=== PATIENT | male | born 1965 | race Caucasian/White ===

== ENCOUNTER 2020-04-16 10:28 | Emergency (ER) | payer BC, SELFPAY ==
[2020-04-16 10:29] VITALS: BP 140/92; PULSE 95; RESP 17; TEMP 36.2; O2SAT 98; BMI 22.9
--- NOTE | 2020-04-16 11:29 | ED.DCSUM_ITS ---
History of Present Illness Chief Complaint: Laceration Narrative: Patient presenting for evaluation secondary to a finger laceration. Patient reports that he was utilizing a chain saw, and suffered a laceration to his right index finger. He is right-hand dominant. He reports that his tetanus status is right around the last 5 years. He denies any history of diabetes or immunosuppression. Bleeding was controlled with pressure. Pain is mild to moderate worse with palpation and movement. No numbness or weakness associated with this. Past Medical History - Allergies and Home Meds Allergies/Adverse Reactions: Allergies No Known Allergies Allergy (Verified 04/16/20 10:29) Primary Care Physician: Blade Bruce III, MD [Primary Care Provider] - Surgical History: total knee arthroplasty, - - Laparotomy for diverticulitis Smoking Status: Never smoker - Family History Maternal Family History: Reports: COPD Sibling Family History: Reports: - - Back problems Paternal Family History: Reports: Cancer - Lung Review of Systems General: Denies: Fever Respiratory: Denies: Dyspnea, Cough Gastrointestinal: Denies: Nausea Musculoskeletal: Reports: Extremity Pain Skin: Reports: Wounds Neurological: Denies: Weakness, Numbness Hematologic: Denies: Easy bruising, Easy bleeding Physical Exam Vital Signs/Narrative: Vital Signs Temp Pulse Resp BP Pulse Ox 04/16/20 10:29 97.1 F L 95 17 140/92 H 98 Inital Vital Signs reviewed: Yes Right Finger: - - Examination of the patient's right hand shows a laceration that is just distal to the proximal interphalangeal joint of the right index finger on the dorsal surface. Normal flexion and extension of the finger. Normal capillary refill. Normal two-point sensation distally. Laceration measures may be 1 cm General: Well nourished, Well developed Head: Normocephalic Eyes: EOMI ENT: No Trauma Neck: Full ROM Cardiovascular: Regular rate, Regular rhythm, - - 2+ radial pulses bilaterally symmetric Respiratory: No distress Skin: Normal color, No rash Neurological: Alert, Oriented x3 Psychological: Normal affect Diagnostic/Tx/Re-eval 3 view x-ray of the patient's right hand shows no bony involvement of the patient's index finger, no fractures by my personal interpretation - Medical Decision Making Patient presented secondary to a finger laceration. Radiographs are negative by my personal interpretation. Tetanus status was updated. After the patient's finger was blocked, and a tourniquet was placed it seems evidence that the patient has at least a partial laceration of his flexor tendon, but he does still have intact flexion and extension at the PIP DIP and MCP. Wound was a pproximated as noted in the procedure note. I discussed patient's case with orthopedics for follow-up due to the partial extensor tendon laceration. Patient will be placed in a AlumaFoam splint. He will be placed on Keflex for infection prophylaxis. Procedures - Lacerations No standard instances Length: 30 in Depth: Skin Shape: Linear Prep: Sterile Conditions, Shure-Clens Laceration Repair: Digital block, Sutures, Wound explored - Apparent extensor tendon involvement with a partial tear, intact flexion and extension at the PIP and DIP Irrigated (ml): 250 Number of Sutures/Fairplay: 6 Suture Information: Ethilon, 4-0 ED Disposition - Plan for ED Patient: Disposition: Home or Assisted Living Diagnosis: Laceration of right index finger, Extensor tendon laceration of finger with open wound Instructions: ED Laceration Hand, ED TENDON LACERATION Prescriptions: Cephalexin [Keflex] 500 mg PO Q12 #14 cap Prescription Printed Referrals: Laurent Israel DO [STAFF PHYSICIAN] - As soon as possible
--- NOTE | 2020-04-16 11:30 | RAD_ITS ---
STUDY: X-RAY - RIGHT HAND REASON FOR EXAM: Male, 54 years old. Patient cut right second digit with chainsaw TECHNIQUE: 3 view(s) of the hand. COMPARISON: None. FINDINGS: Normal radiocarpal articulation. Normal distal radioulnar joint. Normal visualized carpal bones. Normal carpal articulations Normal carpometacarpal articulation of the thumb. Normal second through fifth carpometacarpal joints. Normal metacarpi. Normal metacarpophalangeal joint of the thumb. Normal interphalangeal joint of the thumb. Normal proximal and distal phalanges of the thumb. Normal metacarpophalangeal joints of the second through fifth fingers. Normal proximal and distal interphalangeal joints of the second through fifth fingers. Normal phalanges of the second through fifth fingers. The soft tissue structures are unremarkable. RAD/Hand Min 3 Views IMPRESSION: Normal x-ray examination of the hand. Electronically Signed: Juan Daniel Aragon, at 12:16 EDT , Service support ,
[2020-04-16] MEDS: Diphth,Pertuss(Acell),Tet Vac 0.5 ML Vial IM (11:57)
[2020-04-16] MEDS: BACITRACIN 15 GM Tube 1 APPLIC TOPICAL (12:54)
== END 2020-04-16 12:56 | disposition home or self-care (01) ==
PROVIDERS: Emergency Provider Emergency Medicine; PCP Family Medicine
DX: S66.320A Laceration of extensor muscle, fascia and tendon of right index finger at wrist and hand level, initial encounter (principal); S61.210A Laceration without foreign body of right index finger without damage to nail, initial encounter; W29.3XXA Contact with powered garden and outdoor hand tools and machinery, initial encounter; Y93.9 Activity, unspecified; Y92.9 Unspecified place or not applicable; Y99.9 Unspecified external cause status; Z23 Encounter for immunization
CPT/HCPCS: 12001; 73130; 90471; 90715; 99284

== ENCOUNTER → 2020-08-10 12:29 | Outpatient (CLI) | payer BC, SELFPAY ==
--- NOTE | 2020-08-10 12:34 | MRI_ITS ---
STUDY: MRI CERVICAL SPINE WITHOUT CONTRAST REASON FOR EXAM: Male, 54 years old. spondylosis, headaches, neck pain x 2 yrs TECHNIQUE: Standardized fat and water weighted pulse sequences were obtained in the sagittal and axial planes. COMPARISON: None FINDINGS: Normal foramen magnum and brainstem-cervical cord junction. Normal craniovertebral junction. Normal anterior atlantoaxial articulation. Normal odontoid process. Normal cervical lordosis. Normal vertebral bodies and posterior osseous elements. C2-3: Normal endplates. Normal disc height, signal and morphology. Normal central canal and intervertebral neural foramina. C3-4: Normal endplates. Normal disc height, signal and morphology. Normal central canal and intervertebral neural foramina. C4-5: Normal endplates. Normal disc height, signal and morphology. Normal central canal and intervertebral neural foramina. C5-6: Mild broad disc osteophyte complex and bilateral vertebral hypertrophy with loss of disc height produces mild spinal stenosis and mild bilateral neural foraminal stenosis. C6-7: Mild broad disc osteophyte complex produces mild spinal stenosis but no neural foraminal stenosis. C7-T1: Normal endplates. Normal disc height, signal and morphology. Normal central canal and intervertebral neural foramina. Normal cervical cord. Normal visualized soft tissue structures. MRI/Spine Cervical (Routine) IMPRESSION: Multilevel degenerative changes, as described above. Electronically Signed: Roddy Álvarez MD at 13:33 EDT Tel , Service support ,
== END ==
PROVIDERS: PCP Family Medicine; Referring Provider Orthopaedic Surgery Orthopaedic Surgery of the Spine; Visit Provider Orthopaedic Surgery Orthopaedic Surgery of the Spine
DX: M43.11 Spondylolisthesis, occipito-atlanto-axial region (principal); M48.02 Spinal stenosis, cervical region; M47.812 Spondylosis without myelopathy or radiculopathy, cervical region
CPT/HCPCS: 72141

== ENCOUNTER → 2023-03-19 | Outpatient (CLI) | payer OTHER, SELFPAY ==
[2023-03-19 12:07] LABS: Absolute Lymphocyte Count 1.39 X10^3/uL (0.83-4.51); Absolute Neutrophil Count 4.5 X10^3/uL (2.0-7.7); Basophil# 0.06 X10^3/uL; Basophil% 0.9 % (0-1); Eosinophil# 0.12 X10^3/uL; Eosinophils% 1.8 % (0-5); Hematocrit 53.1 % (40-54); Hemoglobin 17.4 g/dL (13.0-16.5); Lymphocyte # 1.39 X10^3/ul (0.83-4.51); Lymphocyte % 20.8 % (19-41); Mean Corp Hgb Conc 32.8 g/dL (32-36); Mean Corpuscular Hgb 30.8 pg (27.0-32.0); Mean Platelet Vol. 11.2 fl (6.2-12.0); Monocyte# 0.61 X10^3/uL; Monocyte% 9.1 % (0-10); NRBC Flagged by Analyzer 0 % (0-5); Neutrophil # 4.46 X10^3/uL (2.7-7.7); Platelet Count 238 K/mm3 (150-450); RBC Distribution Width CV 13.1 % (11.6-14.6); RBC Distribution Width SD 45.6 fl (35.1-43.9); Red Blood Count 5.65 M/mm3 (4.6-6.2); White Blood Count 6.7 K/mm3 (4.4-11.0)
[2023-03-19 12:29] LABS: ALB/GLOB Ratio 1.1 RATIO (0.9-2.4); AST(SGOT) 19 U/L (15-37); Alanine Aminotransfer ALT/SGPT 40 U/L (16-61); Albumin, Serum 3.9 g/dL (3.2-5.0); Alkaline Phosphatase 37 U/L (45-117); Anion Gap 7 (5-15); BUN 14 mg/dL (7-18); BUN/Creat Ratio 10.2 RATIO (10-20); Calcium,Total 9.1 mg/dL (8.5-10.1); Chloride 105 mmol/L (98-107); Cholesterol 249 mg/dL (200); Creatinine, Serum 1.37 mg/dL (0.70-1.30); EST Glomerular Filtration Rate 57 mL/min (>60); Est Glom Filt Rate - Afr Amer 69 mL/min (>60); Globulin 3.4 g/dL (2.2-4.2); Glucose 87 mg/dL (74-106); High Density Lipoprotein 29 mg/dL; Potassium 4.1 mmol/L (3.5-5.1); Protein, Total 7.3 g/dL (6.4-8.2); Sodium Level 142 mmol/L (136-145); T4 Free Direct 0.87 ng/dL (0.76-1.46); Thyroid Stim Hormone (TSH) 1.92 uIU/mL (0.358-3.74); Triglycerides 277 mg/dL; Very Low Density Lipoprotein 55 mg/dL (5-40)
[2023-03-19 12:41] LABS: Vitamin B12 547 pg/mL (211-911); Vitamin D,25 Hydroxy 112.8 ng/mL
[2023-03-25 10:09] LABS: Testosterone, % Free 4.46 % (1.50-4.20); Testosterone, Total > 1500 ng/dL (264-916)
== END | disposition home or self-care (01) ==
LOC: MFPLAB 10:20
PROVIDERS: PCP Family Medicine; Visit Provider Family Medicine
DX: E78.5 Hyperlipidemia, unspecified (principal); R53.83 Other fatigue
CPT/HCPCS: 36415; 80053; 80061; 82306; 82607; 84402; 84403; 84439; 84443; 85025

== ENCOUNTER → 2023-04-27 | Outpatient (CLI) | payer OTHER, SELFPAY ==
[2023-04-27 10:32] LABS: Anion Gap 5 (5-15); BUN 22 mg/dL (7-18); BUN/Creat Ratio 14.7 RATIO (10-20); Calcium,Total 9.2 mg/dL (8.5-10.1); Chloride 107 mmol/L (98-107); EST Glomerular Filtration Rate 51 mL/min (>60); Est Glom Filt Rate - Afr Amer 62 mL/min (>60); Glucose 101 mg/dL (74-106); Potassium 4.3 mmol/L (3.5-5.1); Sodium Level 138 mmol/L (136-145)
== END | disposition home or self-care (01) ==
LOC: MFPLAB 08:08
PROVIDERS: PCP Family Medicine; Visit Provider Family Medicine
DX: R94.4 Abnormal results of kidney function studies (principal)
CPT/HCPCS: 36415; 80048

== ENCOUNTER → 2024-01-29 | Outpatient (CLI) | payer OTHER, SELFPAY ==
[2024-02-04 16:10] LABS: Apple <0.10 kU/L (Class 0); Beef <0.10 kU/L (Class 0); Chicken <0.10 kU/L (Class 0); Clam <0.10 kU/L (Class 0); Codfish <0.10 kU/L (Class 0); Corn <0.10 kU/L (Class 0); Egg, White <0.10 kU/L (Class 0); Egg, Whole <0.10 kU/L (Class 0); Milk (Cow) <0.10 kU/L (Class 0); Onion <0.10 kU/L (Class 0); Pea <0.10 kU/L (Class 0); Peanut <0.10 kU/L (Class 0); Pistachio Nut <0.10 kU/L (Class 0); Pork <0.10 kU/L (Class 0); Potato, White <0.10 kU/L (Class 0); Rice <0.10 kU/L (Class 0); SCALLOP <0.10 kU/L (Class 0); SESAME SEED <0.10 kU/L (Class 0); Shrimp <0.10 kU/L (Class 0); Soybean <0.10 kU/L (Class 0); Tomato <0.10 kU/L (Class 0); Walnut, (Food) <0.10 kU/L (Class 0); Wheat <0.10 kU/L (Class 0)
== END | disposition home or self-care (01) ==
PROVIDERS: Referring Provider Otolaryngology; Visit Provider Otolaryngology
DX: J30.89 Other allergic rhinitis (principal); L50.0 Allergic urticaria
CPT/HCPCS: 36415; 86003

== ENCOUNTER → 2024-08-29 | Outpatient (CLI) | payer OTHER, SELFPAY ==
[2024-08-29 11:43] LABS: Hematocrit 53.5 % (40-54); Mean Corp Hgb Conc 33.8 g/dL (32-36); Mean Corpuscular Hgb 31.4 pg (27.0-32.0); Mean Corpuscular Volume 92.7 fL (80-94); Mean Platelet Vol. 10.6 fl (6.2-12.0); Platelet Count 214 K/mm3 (150-450); RBC Distribution Width CV 14.1 % (11.6-14.6); RBC Distribution Width SD 48.4 fl (35.1-43.9); Red Blood Count 5.77 M/mm3 (4.6-6.2); White Blood Count 6.5 K/mm3 (4.4-11.0)
[2024-08-29 11:54] LABS: Scan Indicated on CBC? Y/N YES- FLAGS NOTED
[2024-08-29 12:13] LABS: ALB/GLOB Ratio 1.3 RATIO (0.9-2.4); AST(SGOT) 17 U/L (15-37); Alanine Aminotransfer ALT/SGPT 45 U/L (16-61); Albumin, Serum 4.1 g/dL (3.2-5.0); Alkaline Phosphatase 39 U/L (45-117); Anion Gap 5 (5-15); BUN 14 mg/dL (7-18); BUN/Creat Ratio 9.8 RATIO (10-20); Chloride 107 mmol/L (98-107); Cholesterol 244 mg/dL (200); Creatinine, Serum 1.43 mg/dL (0.70-1.30); EST Glomerular Filtration Rate 54 mL/min (>60); Est Glom Filt Rate - Afr Amer 65 mL/min (>60); Globulin 3.1 g/dL (2.2-4.2); Glucose 99 mg/dL (74-106); High Density Lipoprotein 35 mg/dL; PSA,Total - Annual Screen 5.28 ng/mL (0.00-4.00); Potassium 4.1 mmol/L (3.5-5.1); Protein, Total 7.2 g/dL (6.4-8.2); Sodium Level 139 mmol/L (136-145); Triglycerides 300 mg/dL; Very Low Density Lipoprotein 60 mg/dL (5-40)
[2024-08-29 12:17] LABS: Hemoglobin A1c 5.4 % (3.8-5.6)
[2024-08-29 13:22] LABS: Hemoglobin 18.1 g/dL (13.0-16.5)
[2024-08-30 14:39] LABS: Pathologist Review Reviewed
== END | disposition home or self-care (01) ==
LOC: LAB 10:41
PROVIDERS: PCP Nurse Practitioner Family; Referring Provider Nurse Practitioner Family; Visit Provider Nurse Practitioner Family
DX: Z00.00 Encounter for general adult medical examination without abnormal findings (principal); Z13.1 Encounter for screening for diabetes mellitus; Z13.6 Encounter for screening for cardiovascular disorders; Z12.5 Encounter for screening for malignant neoplasm of prostate
CPT/HCPCS: 36415; 80053; 80061; 83036; 84153; 85027; G0103

== ENCOUNTER → 2024-10-17 | Outpatient (CLI) | payer OTHER, SELFPAY ==
[2024-10-17 08:30] LABS: Hematocrit 48.9 % (40-54); Hemoglobin 16.9 g/dL (13.0-16.5); Mean Corp Hgb Conc 34.6 g/dL (32-36); Mean Corpuscular Hgb 31.8 pg (27.0-32.0); Mean Corpuscular Volume 92.1 fL (80-94); Mean Platelet Vol. 10.7 fl (6.2-12.0); Platelet Count 195 K/mm3 (150-450); RBC Distribution Width CV 12.6 % (11.6-14.6); RBC Distribution Width SD 42.8 fl (35.1-43.9); Red Blood Count 5.31 M/mm3 (4.6-6.2); White Blood Count 7.1 K/mm3 (4.4-11.0)
[2024-10-17 10:41] LABS: Cholesterol 286 mg/dL (200); High Density Lipoprotein 42 mg/dL; Triglycerides 329 mg/dL; Very Low Density Lipoprotein 66 mg/dL (5-40)
[2024-10-17 10:59] LABS: Hemoglobin A1c 5.8 % (3.8-5.6)
== END | disposition home or self-care (01) ==
LOC: LAB 07:52
PROVIDERS: PCP Nurse Practitioner Family; Referring Provider Nurse Practitioner Family; Visit Provider Nurse Practitioner Family
DX: Z00.00 Encounter for general adult medical examination without abnormal findings (principal); Z13.1 Encounter for screening for diabetes mellitus; Z13.6 Encounter for screening for cardiovascular disorders
CPT/HCPCS: 36415; 80061; 83036; 85027

== ENCOUNTER → 2025-01-23 | Outpatient (CLI) | payer OTHER, SELFPAY ==
[2025-01-23 08:18] LABS: Hemoglobin 15.7 g/dL (13.0-16.5); Mean Corp Hgb Conc 34.1 g/dL (32-36); Mean Corpuscular Volume 93.7 fL (80-94); Mean Platelet Vol. 10.9 fl (6.2-12.0); Platelet Count 202 K/mm3 (150-450); RBC Distribution Width CV 12.5 % (11.6-14.6); RBC Distribution Width SD 43.5 fl (35.1-43.9); Red Blood Count 4.91 M/mm3 (4.6-6.2); White Blood Count 6.6 K/mm3 (4.4-11.0)
[2025-01-23 08:59] LABS: PTHIN 27 pg/mL (11-61)
[2025-01-23 09:12] LABS: ALB/GLOB Ratio 1.8 RATIO (0.9-2.4); AST(SGOT) 25 U/L (<=37); Alanine Aminotransfer ALT/SGPT 34 U/L (<=46); Albumin, Serum 4.6 g/dL (3.5-5.0); Alkaline Phosphatase 46 U/L (40-129); Anion Gap 12 (5-15); BUN 15 mg/dL (4-19); BUN/Creat Ratio 11.7 RATIO (10-20); Calcium,Total 9.6 mg/dL (7.6-11.0); Carbon Dioxide 24.8 mmol/L (21.0-32.0); Chloride 105 mmol/L (98-108); Creatinine, Serum 1.29 mg/dL (0.70-1.20); EST Glomerular Filtration Rate 64 (>60); Globulin 2.5 g/dL (2.2-4.2); Glucose 98 mg/dL (70-99); Potassium 4.5 mmol/L (3.3-5.1); Sodium Level 142 mmol/L (133-145); Total Bilirubin 0.82 mg/dL (0.00-1.30)
[2025-01-23 10:05] LABS: Iron 94 ug/dL (65-175); Iron Binding Capacity,Total 273 ug/dL (250-450); Iron Binding Capacity,Unsat 179 ug/dL (228-428)
[2025-01-23 10:24] LABS: Cholesterol 202 mg/dL (<=200); High Density Lipoprotein 37 mg/dL; Low Density Lipoprotein Calc. 110 mg/dL; Triglycerides 277 mg/dL; Very Low Density Lipoprotein 55 mg/dL (5-40); Vitamin D,25 Hydroxy 46.9 ng/mL (30-100); cholesterol:hdl ratio screen 5.52
== END | disposition home or self-care (01) ==
LOC: LAB 07:42
PROVIDERS: PCP Nurse Practitioner Family; Referring Provider Nurse Practitioner Family; Visit Provider Nurse Practitioner Family
DX: N18.30 Chronic kidney disease, stage 3 unspecified (principal); E55.9 Vitamin D deficiency, unspecified; D75.1 Secondary polycythemia; E78.00 Pure hypercholesterolemia, unspecified; E78.1 Pure hyperglyceridemia
CPT/HCPCS: 36415; 80053; 80061; 82306; 83540; 83550; 83970; 85027